=== PATIENT | male | born 1990 | race Caucasian/White ===

== ENCOUNTER 2016-11-08 19:07 | Emergency (ER) | payer OTHER ==
[2016-11-08 19:29] VITALS: BP 128/70; PULSE 70; TEMP 98.4; BMI 25.8
--- NOTE | 2016-11-08 19:55 | PDOC ---
History of Present Illness <Marvin Mcgrath - Last Filed: 11/09/16 01:05> - General History Source: Patient Exam Limitations: No Limitations - History of Present Illness Initial Comments: 11/08/16 21:08 The patient is a 26 year old male, with no significant past medical history, who presents to the emergency department with R testicular pain for the past 4- 5 days. Patient reports increased discomfort when lying supine and standing erect. Patient denies any injury to the area. He denies penile discharge, dysuria, frequency, urgency or hematuria. Allergies: NKA Past surgical history: None Social history: Current everyday smoker. MJ use. PCP: None <Selma Marino - Last Filed: 11/09/16 01:08> - General Chief Complaint: Pain Stated Complaint: PAIN Time Seen by Provider: 11/08/16 19:41 Past History - Psycho/Social/Smoking Cessation Hx Suicidal Ideation: No Smoking History: Current every day smoker Information on smoking cessation initiated: No <Marvin Mcgrath - Last Filed: 11/09/16 01:05> <Selma Marino - Last Filed: 11/09/16 01:08> - Past Medical History Allergies/Adverse Reactions: Allergies Allergy/AdvReac Type Severity Reaction Status Date / Time amoxicillin Allergy Unknown Hives Verified 11/08/16 23:32 Home Medications: Ambulatory Orders NK [No Known Home Medication] 11/08/16 Review of Systems - Review of Systems Able to Perform ROS?: Yes Comments:: 11/08/16 21:08 CONSTITUTIONAL: No fever, no chills, no fatigue EYES: No visual changes ENT: No ear pain, no sore throat CARDIOVASCULAR: No chest pain, no palpitations RESPIRATORY: No cough, no SOB GI: No abdominal pain, no nausea, no vomiting, no constipation, no diarrhea GENITOURINARY: +R testicular pain. No dysuria, no frequency, no hematuria MUSKULOSKELETAL: No backpain, no joint pain, no myalgias SKIN: No rash NEURO: No headache <Selma Marino - Last Filed: 11/09/16 01:08> *Physical Exam - Vital Signs Last Vital Signs Temp Pulse Resp BP Pulse Ox 98.4 F 70 16 128/70 98 11/08/16 19:25 11/08/16 19:25 11/08/16 19:25 11/08/16 19:25 11/08/16 19:25 <Marvin Mcgrath - Last Filed: 11/09/16 01:05> - Vital Signs Last Vital Signs Temp Pulse Resp BP Pulse Ox 98.4 F 70 16 128/70 99 11/08/16 19:25 11/08/16 19:25 11/08/16 19:25 11/08/16 19:25 11/08/16 20:39 - Physical Exam Comments: 11/08/16 21:08 CONSTITUTIONAL: Well-appearing; well-nourished; in no apparent distress HEAD: Normocephalic; atraumatic EYES: PERRL; EOM intact ENMT: External appears normal; normal oropharynx NECK: Supple; nontender; no cervical lymphadenopathy CARD: Normal S1, S2; no murmurs, rubs, or gallops RESP: Normal chest excursion with respiration; breath sounds clear and equal bilaterally; no wheezes, rhonchi, or rales ABD: Soft, non-distended; non-tender; no palpable organomegaly, no palpable hernias EXT: Normal ROM in all four extremities; non-tender to palpation; distal pulses intact SKIN: Warm, dry, no rash NEURO: No focal neurological deficiencies. : + No penile lesions. Both testicles are LIE. Pain and tenderness to R epididymis. No palpable hernias bilaterally. No regional enlarged lymphadenopathy. <Selma Marino - Last Filed: 11/09/16 01:08> ED Treatment Course - ADDITIONAL ORDERS Additional order review: Laboratory Results 11/08/16 20:25 Urine Color Yellow Urine Appearance Slcloudy Urine pH 7.0 Urine Protein Negative Urine Glucose (UA) Negative Urine Ketones Negative Urine Blood Negative Urine Nitrite Negative Urine Bilirubin Negative Urine Urobilinogen 4.0 e.u/dl Ur Leukocyte Esterase Negative <Selma Marino - Last Filed: 11/09/16 01:08> Medical Decision Making - Medical Decision Making 11/09/16 00:54 Patient is a well-appearing 26-year-old male who presents to the ER with signs and symptoms of acute epididymitis/orchitis. Patient is afebrile and nontoxic appearing. Urinalysis within normal limit without evidence of pyuria. Chlamydia/ gonorrhea implication probe is pending. Given the ultrasound findings, patient' s age less than 35, will treat with ceftriaxone and Zithromax by mouth. Will discharge with urology follow-up as needed. <Marvin Mcgrath - Last Filed: 11/09/16 01:05> *DC/Admit/Observation/Transfer - Attestations Physician Attestion: 11/09/16 00:53 The documentation was prepared by the scribe under my direct supervision. I have reviewed the documentation which correctly represents the findings, medical decision-making and critical action taken by me. <Marvin Mcgrath - Last Filed: 11/09/16 01:05> - Attestations Scribe Attestion: 11/08/16 21:08 Documentation prepared by Selma Marino, acting as hospitalist medical director for Marvin Mcgrath MD <Selma Marino - Last Filed: 11/09/16 01:08> Diagnosis at time of Disposition: Orchitis, Varicocele - Discharge Dispostion Disposition: HOME Condition at time of disposition: Stable - Referrals Referrals: Mitesh Schulz MD [Staff Physician] - - Patient Instructions Printed Discharge Instructions: Epididymitis, DI for Varicocele
[2016-11-08 20:50] LABS: URINE APPEARANCE SLCLOUDY; URINE BILIRUBIN NEGATIVE (NEGATIVE); URINE BLOOD NEGATIVE (NEGATIVE); URINE COLOR YELLOW; URINE GLUCOSE (UA) NEGATIVE (NEGATIVE); URINE KETONE NEGATIVE (NEGATIVE); URINE LEUK ESTERASE NEGATIVE (NEGATIVE); URINE NITRITE NEGATIVE (NEGATIVE); URINE PROTEIN NEGATIVE (NEGATIVE); URINE UROBILINOGEN 4.0 E.U/dl mg/dL (0.2-1.0)
[2016-11-08] MEDS ORDERED: AZITHROMYCIN 1 GM PACKET PO ONE (23:26)
[2016-11-08] MEDS ORDERED: cefTRIAXone SODIUM 1 GM VIAL ONE (23:38)
[2016-11-08] MEDS ORDERED: AZITHROMYCIN 1 GM PACKET ONE (23:38)
[2016-11-08] MEDS ORDERED: LIDOCAINE HCL/PF 1% SDV 5ML VIAL ONE (23:40)
--- NOTE | 2016-11-12 09:49 | PDOC ---
Patient Follow-up (Call Back) - Post ED Follow - Up Chief Complaint: Pain Condition at time of discharge: Stable Disposition at time of original discharge: HOME Reason for Call Back: Abnwl. Microbiology (positive chlamydia) - Disposition Rx Needed: No Additional Instructions/Notes: message left with mother to have pt call the hospital
== END 2016-11-09 01:25 | disposition home or self-care (01) ==
LOC: JER 19:07
DX: N45.2 Orchitis (principal); I86.1 Scrotal varices; F17.210 Nicotine dependence, cigarettes, uncomplicated; Z88.0 Allergy status to penicillin
CPT/HCPCS: 36415; 76870-TC; 81003; 87086; 87491; 87591; 99282-25

== ENCOUNTER 2018-04-01 20:01 | Emergency (ER) | payer SELFPAY ==
--- NOTE | 2018-04-01 20:04 | PDOC ---
History of Present Illness - General History Source: Patient Exam Limitations: No Limitations - History of Present Illness Initial Comments: 04/01/18 20:57 The patient is a 27 year old male, with no significant PMH, who presents to the emergency department complaining of testicular pain that began approximately a couple of months ago. The patient states he feels like his testicule is pulling down. The patient notes swelling above the testicules and admits he is sexually active. He states pain is exacerbated when squatting down. The patient denies chest pain, shortness of breath, headache and dizziness.Denies fever, chills, nausea, vomit, diarrhea and constipation.Denies dysuria, frequency, urgency and hematuria. PAST MEDICAL HISTORY: no significant history PAST SURGICAL HISTORY: no significant history FAMILY HISTORY: no pertinent history SOCIAL HISTORY: Pt lives with family and is employed. MEDICATIONS: reviewed ALLERGIES: As per nursing notes Adult ROS General: No fevers or chills, no weakness, no weight loss HEENT: No change in vision. No sore throat,. No ear pain CardioVascular: No chest pain or shortness of breath Respiratory:No cough, or wheezing. Gastrointestinal: no nausea, vomiting, diarrhea or constipation, No rectal bleeding Genitourinary: +Testicular pain No dysuria, hematuria, or frequency Musculoskeletal: No joint or muscle pain or swelling Neurologic: No headache, vertigo, dizziness or loss of consciousness Psychiatric: nor depression Skin: No rashes or easy bruising Endocrine: no increased thirst or abnormal weight change Allergic: no skin or latex allergy All other systems reviewed and normal Basic PE GENERAL: The patient is awake, alert, and fully oriented, in no acute distress. HEAD: Normal with no signs of trauma. EYES: Pupils equal, round and reactive to light, extraocular movements intact, sclera anicteric, conjunctiva clear. : No penile lymphadenopathy. Circumcised male. No palpable testicular masses or lesions. No palpable hernia. EXTREMITIES: Normal range of motion, no edema. NEUROLOGICAL: Normal speech, normal gait. PSYCH: Normal mood, normal affect. SKIN: Warm, Dry, normal turgor, no rashes or lesions noted. <Lyudmila Cottrell - Last Filed: 04/01/18 20:56> - General History Source: Patient Exam Limitations: No Limitations - History of Present Illness Initial Comments: 04/01/18 23:36 A portion of this note was documented by scribe services under my direction. I have reviewed the details of the note, within reason, and agree with the documentation with the following case summary and management plan written by me. Patient treated in the ED. Nursing notes are reviewed and incorporated into the medical decision-making. Vital signs reviewed. Assessment plan: This is a 27-year-old male who comes in complaining of testicular pain. Workup was initiated including ultrasound of the testicles. Ultrasound was unremarkable with no acute pathology. Patient was noted to have a varicocele which has been present since 2017 otherwise no evidence of torsion and normal ultrasound. Patient also treated for STDs however low probability they are positive if positive patient will be treated as a did not treat him at this time. <Dina Estrada I - Last Filed: 04/01/18 23:37> - General Chief Complaint: Pain Stated Complaint: GROIN PAIN Time Seen by Provider: 04/01/18 20:04 Past History <Lyudmila Cottrell - Last Filed: 04/01/18 20:56> - Suicide/Smoking/Psychosocial Hx Smoking History: Current every day smoker <Dina Estrada I - Last Filed: 04/01/18 23:37> - Past Medical History Allergies/Adverse Reactions: Allergies Allergy/AdvReac Type Severity Reaction Status Date / Time amoxicillin Allergy Unknown Hives Verified 11/08/16 23:32 Home Medications: Ambulatory Orders NK [No Known Home Medication] 11/08/16 *Physical Exam - Vital Signs Last Vital Signs Temp Pulse Resp BP Pulse Ox 98.5 F 82 16 131/76 98 04/01/18 20:05 04/01/18 20:05 04/01/18 20:05 04/01/18 20:05 04/01/18 20:05 <Lyudmila Cottrell - Last Filed: 04/01/18 20:56> Moderate Sedation - Procedure Monitoring Vital Signs: Procedure Monitoring Vital Signs Temperature 98.5 F 04/01/18 20:05 Pulse Rate 82 04/01/18 20:05 Respiratory Rate 16 04/01/18 20:05 Blood Pressure 131/76 04/01/18 20:05 O2 Sat by Pulse Oximetry (%) 98 04/01/18 20:05 <Lyudmila Cottrell - Last Filed: 04/01/18 20:56> ED Treatment Course - ADDITIONAL ORDERS Additional order review: Laboratory Results 04/01/18 20:25 Urine Color Yellow Urine Appearance Clear Urine pH 7.0 Ur Specific [place] 1.025 Urine Protein Trace Urine Glucose (UA) Negative Urine Ketones Trace Urine Blood Negative Urine Nitrite Negative Urine Bilirubin Negative Urine Urobilinogen 0.2 Ur Leukocyte Esterase Negative <Lyudmila Cottrell - Last Filed: 04/01/18 20:56> *DC/Admit/Observation/Transfer - Attestations Scribe Attestion: 04/01/18 20:57 Documentation prepared by Lyudmila Cottrell, acting as medical collections for Dina Estrada MD. <Lyudmila Cottrell - Last Filed: 04/01/18 20:56> - Discharge Dispostion Decision to Admit order: No <Dina Estrada I - Last Filed: 04/01/18 23:37> Diagnosis at time of Disposition: Varicocele, Hydrocele in adult - Discharge Dispostion Disposition: HOME Condition at time of disposition: Stable - Referrals Schedule a call back: call with results of STD test. - Patient Instructions Additional Instructions: take Tylenol or Motrin as needed for the pain. Follow-up with your primary care doctor Return to the emergency department immediately with ANY new, persistent or worsening symptoms. Continue any medications as previously prescribed by your physician. You should follow up with your primary doctor as soon as possible regarding today's emergency department visit. . Please make sure your doctor reviews the results of your emergency evaluation. Thank you for coming to the Emergency Department today for your care. It was a pleasure to see you today. Please note that your evaluation is INCOMPLETE until you follow-up with your doctor.
[2018-04-01 20:24] VITALS: BP 131/76; PULSE 82; TEMP 98.5; BMI 24.9
[2018-04-01 20:36] LABS: URINE APPEARANCE Clear; URINE BILIRUBIN Negative (NEGATIVE); URINE COLOR Yellow; URINE GLUCOSE (UA) Negative (NEGATIVE); URINE KETONE Trace (NEGATIVE); URINE LEUK ESTERASE Negative (NEGATIVE); URINE NITRITE Negative (NEGATIVE); URINE PROTEIN Trace (NEGATIVE); URINE UROBILINOGEN 0.2 (0.2-1.0)
== END 2018-04-01 23:00 | disposition home or self-care (01) ==
LOC: FER 20:01
DX: I86.1 Scrotal varices (principal); N43.3 Hydrocele, unspecified; Z88.1 Allergy status to other antibiotic agents
CPT/HCPCS: 36415; 76870-TC; 81003; 87491; 87591; 99281-25